=== PATIENT | male | born 1985 | race Asian ===

== ENCOUNTER 2018-01-09 11:11 | Emergency (ER) | payer OTHER ==
[2018-01-09 11:38] VITALS: BP 144/82; PULSE 86; TEMP 98; BMI 32.4
[2018-01-09] MEDS ORDERED: IBUPROFEN 400 MG TABLET (FP) PO ONE ×2 (12:04→12:06)
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
== END 2018-01-09 12:36 | disposition home or self-care (01) ==
LOC: JERFT 11:11
DX: S16.1XXA Strain of muscle, fascia and tendon at neck level, initial encounter (principal); S46.811A Strain of other muscles, fascia and tendons at shoulder and upper arm level, right arm, initial encounter; V43.62XA Car passenger injured in collision with other type car in traffic accident, initial encounter; Y92.488 Other paved roadways as the place of occurrence of the external cause; Y93.89 Activity, other specified; Y99.8 Other external cause status
CPT/HCPCS: 72050-TC-FY; 73030-TC-RT-FY; 99281-25